=== PATIENT | female | born 1950 | race Caucasian/White ===

== ENCOUNTER 2019-04-01 09:53 | Emergency (ER) | payer OTHER ==
--- NOTE | 2019-04-01 10:15 | EDPHY ---
H & P Stated Complaint: swallowed a pine needle on Thursday, pain and soreness R throat and sinus Time Seen by Provider: 04/01/19 10:14 HPI/ROS: Chief Complaint: Severe pain in the throat and drooling HPI: 68-year-old female on Thursday 5 days prior to arrival felt like she swallowed a pine needle poking the back of her throat on the way down while drinking. She did not think anything of it and it felt better the next day but then on Thursday 4 days prior to arrival she started developing increasing pain in the right throat. She then noted this morning she was woken from sleep with severe pain in the right neck radiating to the face and the throat with severe odynophagia worsened with swallowing. She also noticed associated drooling out of the right side of her mouth like she could not make a tight seal and her mother had a recent TIA so she became concerned. She feels anxious when she lays flat. Relieved when she sits up. She also has right-sided neck pain and pain in her right TMJ and pain in her right upper and lower jaw. She tried Naprosyn with minimal relief along with a nasal wash with no relief. She even had a friend look in the back of her throat on Thursday but they can see anything. PMH: Asthma Social History: No Tobacco, rare Alcohol Family History: Mom had a TIA recently ROS: Neuro: No headache Constitutional: No Fever, No dizziness ENT: No runny nose, + sore throat and right ear pain along with right jaw pain Cardiac: No Chest Pain Pulmonary: No Shortness of Breath but feels uncomfortable when she lays flat like she might not be able to breathe GI: No abdominal Pain Skin: No rash Heme: No easy bruising : No urinary problems Eyes: No new vision problems but does have chronic vision problems no photophobia Musculoskeletal: + right-sided neck pain, No back pain Complete Review of systems negative except as noted above Physical Exam: General: Alert in moderate distress from pain when she swallows it appears severe, she has no respiratory distress, does not appear to have anxiety Eyes: no icterus or pallor ENT: Mouth: Mucus membranes moist she does have mild swelling of the right parapharyngeal area there is no trismus and no sublingual swelling and she has no tenderness of the dentition. Neck: supple, no lymph nodes, but she does have tenderness along the right submandibular and right anterior neck and lateral neck area. She also has tenderness of the right maxillary sinus. There is no crepitus felt. The right ear is normal and the canal is normal. no vertebral tenderness, no meningeal signs Lungs CTA bilaterally, no respiratory distress no wheezes rhonchi and no chest wall tenderness or subcutaneous emphysema Cardiac: Normal pulses, normal rate, normal rhythm, normal heart sounds Back: Normal inspection, nml ROM, No CVAT, no vertebral tenderness Extremities: No swelling, nml ROM Skin: Warm, pink and dry, no rash, normal turgor Neuro: A&Ox3, normal motor and sensory exam, Nml Speech, cranial nerves 2-12 intact. NIH Stroke Scale equals 0 Psych: Normal mood and affect Reevaluations, MDM, and data interpretation Data Interpretation Reviewed prior records - no prior visits in [facility]. CT Independently viewed by me ED Course Initial Eval: Pt greeted and advised about plan for care. Reevaluation Time 1230. On re-evaluation the patient is feeling better after the lidocaine. She is little bit sleepy. Were awaiting CT scan results and I updated her on the plan. She is breathing well has no signs of choking or trismus. I did go over warnings of trismus, difficulty swallowing, increased swelling difficulty breathing, or pain. Medical Decision Making Differential Diagnosis and MDM: 68-year-old female with sudden severe pain in the right neck and face in the setting of recent puncture wound to the pharynx. Differential diagnosis includes foreign body, parapharyngeal space abscess, jugular vein thrombosis, lamierre syndrome, carotid dissection. Will need to perform CT/CTA to rule out life-threatening and neurologically disabling causes of symptoms. Will also start antibiotics since she has been worsening concern for infection as a cause of her symptoms. - Personal History Current Tetanus/Diphtheria Vaccine: Unsure Current Tetanus Diphtheria and Acellular Pertussis (TDAP): Unsure - Medical/Surgical History Hx Asthma: Yes Hx Chronic Respiratory Disease: No Hx Diabetes: No Hx Cardiac Disease: No Hx Renal Disease: No Hx Cirrhosis: No Hx Alcoholism: No Hx HIV/AIDS: No Hx Splenectomy or Spleen Trauma: No - Social History Smoking Status: Never smoked Constitutional: Initial Vital Signs Temperature (C) 37 C 04/01/19 09:56 Heart Rate 79 04/01/19 09:56 Respiratory Rate 14 04/01/19 09:56 Blood Pressure 142/70 H 04/01/19 09:56 O2 Sat (%) 98 04/01/19 09:56 O2 Delivery Mode Room Air Allergies/Adverse Reactions: No Known Allergies Allergy (Unverified 04/01/19 10:00) Home Medications: Medication Instructions Recorded Amoxicillin/Clavulanate Pot 875 mg PO BID #14 tab 04/01/19 [Augmentin 875 MG TAB (*)] Effexor Xr 04/01/19 Fluticasone/Salmeter 100/50Mcg 04/01/19 [Advair 100/50 (*)] Lidocaine 2% Viscous 5 ml MM Q4-6PRN PRN #100 ml 04/01/19 Medical Decision Making - Diagnostics Imaging Results: Imaging Impressions Neck CTA 04/01/19 10:37 Impression: 1. Normal vessels. 2. No evidence for retropharyngeal abscess or lymphadenopathy. Findings and recommendations discussed with Kashif Carter MD, at 1:00 PM, 04/01/2019. Final report concurs with initial preliminary interpretation. Note: All stenoses are calculated using NASCET Criteria. - Data Points Laboratory Results: Laboratory Results 04/01/19 11:03 04/01/19 04/01/19 11:17 11:03 WBC 8.89 10^3/uL 10^3/uL (3.80-9.50) RBC 5.37 10^6/uL H 10^6/uL (4.18-5.33) Hgb 16.2 g/dL g/dL (12.6-16.3) POC Hgb 16.3 gm/dL gm/dL (12.6-16.3) Hct 47.9 % H % (38.0-47.0) POC Hct 48 % H % (38-47) MCV 89.2 fL fL (81.5-99.8) MCH 30.2 pg pg (27.9-34.1) MCHC 33.8 g/dL g/dL (32.4-36.7) RDW 12.6 % % (11.5-15.2) Plt Count 278 10^3/uL 10^3/uL (150-400) MPV 9.2 fL fL (8.7-11.7) Neut % (Auto) 71.2 % % (39.3-74.2) Lymph % (Auto) 20.2 % % (15.0-45.0) [place] % (Auto) 7.5 % % (4.5-13.0) Eos % (Auto) 0.6 % % (0.6-7.6) Baso % (Auto) 0.3 % % (0.3-1.7) Nucleat RBC Rel Count 0.0 % % (0.0-0.2) Absolute Neuts (auto) 6.32 10^3/uL 10^3/uL (1.70-6.50) Absolute Lymphs (auto) 1.80 10^3/uL 10^3/uL (1.00-3.00) Absolute Monos (auto) 0.67 10^3/uL 10^3/uL (0.30-0.80) Absolute Eos (auto) 0.05 10^3/uL 10^3/uL (0.03-0.40) Absolute Basos (auto) 0.03 10^3/uL 10^3/uL (0.02-0.10) Absolute Nucleated RBC 0.00 10^3/uL 10^3/uL (0-0.01) Immature Gran % 0.2 % % (0.0-1.1) Immature Gran # 0.02 10^3/uL 10^3/uL (0.00-0.10) POC Sodium 142 mEq/L mEq/L (135-145) POC Potassium 3.7 mEq/L mEq/L (3.3-5.0) POC Chloride 104 mEq/L mEq/L (97-110) POC Total CO2 25 mEq/L mEq/L (22-31) POC BUN 14 mg/dL mg/dL (7-23) POC Creatinine 0.6 mg/dL mg/dL (0.6-1.0) POC Glucose 90 mg/dL mg/dL (70-100) Medications Given: Discontinued Medications Ampicillin Sodium/Sulbactam (Sodium 3 gm/ Sodium Chloride) 100 mls @ 200 mls/ hr IV EDNOW ONE PRN Reason: Protocol Stop: 04/01/19 11:18 Last Admin: 04/01/19 11:23 Dose: 100 mls Lidocaine HCl (Lidocaine Hcl 4% Topical Solution) 5 ml MM EDNOW ONE Stop: 04/01/19 10:39 Last Admin: 04/01/19 11:05 Dose: 5 ml Point of Care Test Results: Chemistry 04/01/19 11:17 POC Sodium 142 mEq/L mEq/L (135-145) POC Potassium 3.7 mEq/L mEq/L (3.3-5.0) POC Chloride 104 mEq/L mEq/L (97-110) POC Total CO2 25 mEq/L mEq/L (22-31) POC BUN 14 mg/dL mg/dL (7-23) POC Creatinine 0.6 mg/dL mg/dL (0.6-1.0) POC Glucose 90 mg/dL mg/dL (70-100) ISTAT H&H 04/01/19 11:17 POC Hgb 16.3 gm/dL gm/dL (12.6-16.3) POC Hct 48 % H % (38-47) Departure - Departure Disposition: Home, Routine, Self-Care Clinical Impression: Peritonsillar cellulitis, Suspected foreign body of the pharynx Acute pharyngitis Qualifiers: Pharyngitis/tonsillitis etiology: unspecified etiology Qualified Code(s): J02.9 - Acute pharyngitis, unspecified Condition: Good Instructions: Pharyngitis (ED) Referrals: Amber Rojas MD [Primary Care Provider] - As per Instructions Prescriptions: Amoxicillin/Clavulanate Pot [Augmentin 875 MG TAB (*)] 875 mg PO BID #14 tab Lidocaine 2% Viscous 5 ml MM Q4-6PRN PRN #100 ml PRN Reason: Pain, Breakthrough
[2019-04-01] MEDS ORDERED: LIDOCAINE HCL 4% TOPICAL SOLN 50ML MM ONE (10:38)
[2019-04-01] MEDS ORDERED: AMPICILLIN/SULBACTAM 3 GM in NS 100 ML IV ONE (10:49)
[2019-04-01 11:24] LABS: PLATELET COUNT 278 10^3/uL (150-400)
[2019-04-01] MEDS ORDERED: IOPAMIDOL (ISOVUE 370) 100 ML BTL IV ONE (11:25)
[2019-04-01 13:04] VITALS: BP 141/83
== END 2019-04-01 13:01 | disposition home or self-care (01) ==
DX: J36 Peritonsillar abscess (principal); J02.9 Acute pharyngitis, unspecified
CPT/HCPCS: 70498; 96374; 99285; J0295; Q9967; 82435-PO; 82565-PO; 82947-PO; 84132-PO; 84295-PO; 84520-PO; 85014-ER